=== PATIENT | female | born 1965 | race Caucasian/White ===

== ENCOUNTER → 2018-12-15 | Outpatient (CLI) | payer BC | LOC: PT 14:14 → EDSTATUS 15:30 → PT 15:30 | DX: M17.0 Bilateral primary osteoarthritis of knee (principal) ==

== ENCOUNTER 2019-02-03 10:00 | Outpatient (RCR) | payer BC | END 2019-03-26 | disposition still patient (30) | LOC: PT | DX: Z47.1 Aftercare following joint replacement surgery (principal); Z96.653 Presence of artificial knee joint, bilateral ==

== ENCOUNTER → 2019-12-26 | Outpatient (CLI) | payer BC | LOC: MAMMO 11:25 | DX: Z01.419 Encounter for gynecological examination (general) (routine) without abnormal findings (principal); Z12.31 Encounter for screening mammogram for malignant neoplasm of breast ==

== ENCOUNTER → 2021-02-12 | Outpatient (CLI) | payer BC | LOC: MAMMO 02-11 10:00 | DX: Z12.31 Encounter for screening mammogram for malignant neoplasm of breast (principal) ==

== ENCOUNTER → 2022-02-17 | Outpatient (CLI) | payer BC | LOC: MAMMO 08:00 | DX: Z12.31 Encounter for screening mammogram for malignant neoplasm of breast (principal) ==

== ENCOUNTER → 2024-03-22 | Outpatient (CLI) | payer BC | LOC: MAMMO 07:55 | DX: Z12.31 Encounter for screening mammogram for malignant neoplasm of breast (principal) ==